=== PATIENT | male | born 1965 | race Caucasian/White ===

== ENCOUNTER 2019-03-22 10:03 | Emergency (ER) | payer MEDICAID | END 2019-03-22 13:30 | disposition home or self-care (01) | LOC: E/R 10:03 | DX: S02.0XXD Fracture of vault of skull, subsequent encounter for fracture with routine healing (principal); R40.2142 Coma scale, eyes open, spontaneous, at arrival to emergency department; R40.2362 Coma scale, best motor response, obeys commands, at arrival to emergency department; R40.2252 Coma scale, best verbal response, oriented, at arrival to emergency department; I10 Essential (primary) hypertension; F17.210 Nicotine dependence, cigarettes, uncomplicated; W18.39XD Other fall on same level, subsequent encounter; Y92.9 Unspecified place or not applicable | CPT/HCPCS: 70450; 99284-25 ==